=== PATIENT | female | born 1980 | race Two or more races ===

== ENCOUNTER → 2025-02-11 | Emergency (ER) | payer OTHER ==
[~2025-02-11] VITALS: Ht 162.6 cm; Wt 65.8 kg
[2025-02-11 11:31] LABS: BASO % 0.6 % (0.1-1.2); EOS # 0.07 (0.04-0.54); EOS % 1.0 % (0.7-7.0); LYMPH # 1.74 (1.18-3.74); LYMPH % 25.8 % (19.3-53.1); MEAN PLATELET VOLUME 11.00 fl (9.4-12.4); MONO # 0.55 (0.24-0.82); MONO % 8.1 % (4.7-12.5); NEUT # 4.34 (1.56-6.13); NEUT % 64.4 % (34.0-71.1); RED CELL DISTRIBUTION WIDTH 12.3 % (11.6-14.4)
[2025-02-11 11:58] LABS: BUN CREA RATIO 20.0 (7.0-25.0); CREATININE SERUM 0.64 mg/dL (0.55-1.02); GFR 101.76; GLUCOSE FASTING 103.0 mg/dL (65-100); OSMOLALITY SERUM 285.0 MOSM/KG (275-295)
== END | disposition home or self-care (01) ==
LOC: ER 10:42
PROVIDERS: General Practice
DX: S06.0X0A Concussion without loss of consciousness, initial encounter (principal); W18.39XA Other fall on same level, initial encounter; Y93.89 Activity, other specified; Y92.89 Other specified places as the place of occurrence of the external cause; S49.81XA Other specified injuries of right shoulder and upper arm, initial encounter; S79.811A Other specified injuries of right hip, initial encounter